=== PATIENT | female | born 1930 | race Caucasian/White ===

== ENCOUNTER 2016-09-04 10:46 | Emergency (ER) | payer MEDICARE ==
--- NOTE | 2016-09-04 13:26 | ED CLINICAL REPORT ---
Clinical Report - Physicians/Mid Levels [facility] [address] [place] [address] 09/04/2016 10:48 Patient: MICHELE VALDEZ Time Seen: 1215May 2016. Arrived- By private vehicle. Historian- patient and family. HISTORY OF PRESENT ILLNESS Chief Complaint: Injury to shoulder. 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 Fell. This was not a raising of the arm dislocation. Occurred at home. Patient is experiencing mild pain. Patient denies injury to the head or neck. ( patient with history of dementia, lives with her family members, complaining of right shoulder pain over the last 2 days. Patient uses a walker, however early uses it, and thus falls frequently. Patient otherwise behaving her normal self to family. Also complaining of pain to the right side of the chest, worsens with any palpation.). REVIEW OF SYSTEMS No tingling or numbness. All systems otherwise negative, except as recorded above. PAST HISTORY The patient's dominant hand is the right. She has had a prior injury to the same area. SOCIAL HISTORY Never smoker. No drug use. ADDITIONAL NOTES The nursing notes have been reviewed. PHYSICAL EXAM Vital Signs: 09/04/2016 11:39 BP: 172/72. HR: 64. RR: 20. O2 saturation: 97%. Temp: 98.3 F. Pain level now: 0/10. Appearance: Alert. No apparent distress. Does not appear to be anxious. Head: Head atraumatic. Eyes: Eyes normal inspection. ENT: Nose normal. Neck: Normal inspection. No decreased ROM in the neck. No carotid bruit. CVS: Normal heart rate and rhythm. Heart sounds normal. Respiratory: No respiratory distress. No respiratory distress. Chest wall injury. (tendernss, no signs of trauma, r/ lateral, mid chest). Abdomen: No visible injury. Bowel sounds normal. Skin: Skin warm. Extremities: Right shoulder: tenderness. No ecchymosis or foreign body. No joint effusion. Right acromion: No tenderness or laceration and acromio-clavicular joint: No tenderness or swelling. Right proximal humerus: No tenderness or swelling. Neuro, Vascular and Tendons: Motor intact. Vascular status intact. Tendon function intact. Neuro: Moderately altered mental status: confused. Eyes open spontaneously. Best verbal response: disoriented. Best motor response: localizes to pain. LABS, X-RAYS, AND EKG Chest X-ray: (no acute abnormalities. IMPRESSION: 1. Increased size of large, gas-filled hiatal hernia. 2. Hyperinflation suggestive of emphysema. Electronically Final signed by:Elsie Gomez MD 09/04/2016 2:03:12 PM). Rt Shoulder X-ray: (no signs of new fx/ dislocation IMPRESSION: 1. No acute fractures or shoulder separation. 2. Mild superior subluxation at the glenohumeral joint suggestive of chronic rotator cuff tear. 3. Soft tissue calcifications, potentially within the axillary recess of the humeral joint, likely dystrophic/degenerative. Electronically Final signed by:Elsie Gomez MD 09/04/2016 2:05:43 PM). PROGRESS AND PROCEDURES Course of Care: Patient in her normal state of being, has frequent falls, almost daily. Patient here with family member, lives with her. Patient fell 2 days previously onto the right shoulder. She has had no LOC. She has been behaving her normal self to family. Patient with no signs of acute fracture. Stable. No recent illness, fevers emesis. To f/u outpatient. . Patient is stable. Symptoms better. Patient/family counseled. Disposition: Discharged. CLINICAL IMPRESSION Contusion to the right chest and right shoulder. Fall. INSTRUCTIONS Apply ice. (No signs of broken bones on xray or signs of broken ribs.). Follow-up: Follow up with your doctor as needed. (Electronically signed by Kendra Brown P.A.-C 09/04/2016 14:19) Addenda for MICHELE VALDEZ VisitID: [id number] Date: 09/04/2016 09/04/2016 14:21 ekg: vent rate 62, pr interval 128, no st changes or elevation , possible left atrial enlargemetn, qt 388, normal sinus rhtyhm (Electronically signed by Knedra Brown P.A.-C - 09/04/2016 14:21)
--- NOTE | 2016-09-04 13:26 | ED CLINICAL REPORT ---
Clinical Report - Physicians/Mid Levels [facility] [address] [place] [address] 09/04/2016 10:48 Patient: MICHELE VALDEZ Time Seen: 1215May 2016. Arrived- By private vehicle. Historian- patient and family. HISTORY OF PRESENT ILLNESS Chief Complaint: Injury to shoulder. 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 This was not a raising of the arm dislocation. Occurred at home. Patient is experiencing mild pain. Patient denies injury to the head or neck. ( patient with history of dementia, lives with her family members, complaining of right shoulder pain over the last 2 days. Patient uses a walker, however early uses it, and thus falls frequently. Patient otherwise behaving her normal self to family. Also complaining of pain to the right side of the chest, worsens with any palpation.). REVIEW OF SYSTEMS No tingling or numbness. All systems otherwise negative, except as recorded above. PAST HISTORY The patient's dominant hand is the right. She has had a prior injury to the same area. SOCIAL HISTORY Never smoker. No drug use. ADDITIONAL NOTES The nursing notes have been reviewed. PHYSICAL EXAM Vital Signs: 09/04/2016 11:39 BP: 172/72. HR: 64. RR: 20. O2 saturation: 97%. Temp: 98.3 F. Pain level now: 0/10. Appearance: Alert. No apparent distress. Does not appear to be anxious. Head: Head atraumatic. Eyes: Eyes normal inspection. ENT: Nose normal. Neck: Normal inspection. No decreased ROM in the neck. No carotid bruit. CVS: Normal heart rate and rhythm. Heart sounds normal. Respiratory: No respiratory distress. No respiratory distress. Chest wall injury. (tendernss, no signs of trauma, r/ lateral, mid chest). Abdomen: No visible injury. Bowel sounds normal. Skin: Skin warm. Extremities: Right shoulder: tenderness. No ecchymosis or foreign body. No joint effusion. Right acromion: No tenderness or laceration and acromio-clavicular joint: No tenderness or swelling. Right proximal humerus: No tenderness or swelling. Neuro, Vascular and Tendons: Motor intact. Vascular status intact. Tendon function intact. Neuro: Moderately altered mental status: confused. Eyes open spontaneously. Best verbal response: disoriented. Best motor response: localizes to pain. LABS, X-RAYS, AND EKG Chest X-ray: (no acute abnormalities. IMPRESSION: 1. Increased size of large, gas-filled hiatal hernia. 2. Hyperinflation suggestive of emphysema. Electronically Final signed by:Elsie Gomez MD 09/04/2016 2:03:12 PM). Rt Shoulder X-ray: (no signs of new fx/ dislocation IMPRESSION: 1. No acute fractures or shoulder separation. 2. Mild superior subluxation at the glenohumeral joint suggestive of chronic rotator cuff tear. 3. Soft tissue calcifications, potentially within the axillary recess of the humeral joint, likely dystrophic/degenerative. Electronically Final signed by:Elsie Gomez MD 09/04/2016 2:05:43 PM). PROGRESS AND PROCEDURES Course of Care: Patient in her normal state of being, has frequent falls, almost daily. Patient here with family member, lives with her. Patient fell 2 days previously onto the right shoulder. She has had no LOC. She has been behaving her normal self to family. Patient with no signs of acute fracture. Stable. No recent illness, fevers emesis. To f/u outpatient. . Patient is stable. Symptoms better. Patient/family counseled. Disposition: Discharged. CLINICAL IMPRESSION Contusion to the right chest and right shoulder. Fall. INSTRUCTIONS Apply ice. (No signs of broken bones on xray or signs of broken ribs.). Follow-up: Follow up with your doctor as needed. (Electronically signed by Kendra Brown P.A.-C 09/04/2016 14:19) Addenda for MICHELE VALDEZ VisitID: [id number] Date: 09/04/2016 09/04/2016 14:21 ekg: vent rate 62, pr interval 128, no st changes or elevation , possible left atrial enlargemetn, qt 388, normal sinus rhtyhm (Electronically signed by Kendra Brown P.A.-C - 09/04/2016 14:21)
--- NOTE | 2016-09-04 13:26 | ED NURSING NOTES ---
Clinical Report - Nurses [facility] [place] [address] [address] [place] [address] 09/04/2016 10:48 Patient: MICHELE VALDEZ TRIAGE Triage time 11:40. Acuity: LEVEL 4. Chief Complaint: FALL (3 days ago she fell from standing and hit her right shoulder. Per family she falls every day.). SEPSIS SCREEN: Sepsis Screen. Negative (no infection suspected/documented). SANJUANITA COMA SCORE: Sanjuanita Coma Scale: 15- eyes open spontaneously (4); best verbal response- oriented x 4 (5); best motor response- obeys commands (6). --11:54 Alec Angeles R.N. 11:39 09/04/16. BP: 172/72 (small adult cuff) taken on the left arm, while sitting. HR: 64. RR: 20. O2 saturation: 97% on room air. Temp: 98.3 F (oral). Pain level now: 0/10. --11:54 Alec Angeles R.N. Weight: 40.8 kg stated. Height/Length: 62 inches Per Patient. BMI: 16.5. --11:48 Alec Angeles R.N. Medications Unknown (takes 3 meds daily and 1 weekly). --11:50 Alec Angeles R.N. Allergies No Known Drug Allergy. --11:49 Alec Angeles R.N. History Arrived by private vehicle. Historian: patient. Accompanied by family. ( Pt has a cane, walker, and a seated walker that she uses sometimes. Pt's grand daughter lives with her.). SOCIAL HX: Never smoker. No alcohol use or drug use. ABUSE ASSESSMENT: No report of abuse. --11:54 Alec Angeles R.N. PROBLEMS: Alzheimer's Disease. Clavicle Fracture. Rib Fracture. Fall. Contusion. Diverticulitis. Gastroesophageal Reflux Disease. Osteoporosis. --11:51 Alec Angeles R.N. ADDITIONAL SURGERIES: Adenoidectomy. Appendectomy. Cataract Surgery. Endoscopy. Hysterectomy. Tonsillectomy. --11:51 Alec Angeles R.N. Assessment GENERAL / NEURO / PSYCH: Alert. Appears in no acute distress. The patient is disoriented to person, place and situation. Patient appears calm and cooperative. ( No obvious trauma to her right shoulder). RESPIRATORY: Respirations not labored. Chest nontender. Breath sounds within normal limits. CVS: Capillary refill less than 2 seconds. GI / : Abdomen soft and nontender. SKIN: Mucous membranes are pink. Skin is warm and dry. --11:54 Alec Angeles R.N. Interventions ID band on patient. To treatment room. --11:54 Alec Angeles R.N. PHYSICAL ASSESSMENT To room via wheelchair. GENERAL / NEURO / PSYCH: Alert. Appears in no acute distress. The patient is disoriented to person, place and situation. HEENT: Pupils equal, round and reactive to light. Head non-tender. EXTREMITIES: Extremities exhibit normal ROM. Neuro-vascular status intact to the extremity. Right shoulder: tenderness. No limitation in ROM. SKIN: Skin intact. Skin is warm and dry. --11:58 Alec Angeles R.N. NURSING PROGRESS NOTES Patient gowned. Reassurance given. Two patient identifiers checked. Call light placed in reach. Bed placed in lowest position. Brakes of bed on. Patient ready for evaluation- chart flagged. --11:58 Alec Angeles R.N. EKG time: (1248). EKG was ordered, performed by a tech and shown to the ED physician. --12:56 Yannick He, NORMAN Tech1. DISPOSITION / DISCHARGE Departure time: 1345. Condition at departure: unchanged and stable. Teaching performed with the family. Patient verbalized understanding. Written instructions provided in Kyrgyz. The patient was discharged by the physician pastrycook's assistant. She was discharged home and accompanied by family. She left the Emergency Department in a wheelchair and via private vehicle. Family member driving. --13:50 Alec Angeles R.N. 13:45 09/04/16. BP: 175/66. HR: 63. RR: 20. O2 saturation: 97% on room air. Temp: 98 F (oral). Pain level now: 0/10. --13:50 Alec Angeles R.N. 12:00 09/04/16. BP: 170/60. HR: 65. RR: 20. O2 saturation: 97% on room air. Pain level now: 0/10. --13:51 Alec Angeles R.N. Locked/Released at 09/04/2016 15:15 by Alec Angeles R.N.
--- NOTE | 2016-09-04 13:26 | ED ORDER SUMMARY ---
..... Patient: MICHELE VALDEZ OrderSheet [facility] VisitID: [id number] [address] [place] [address] 86y, F Registration Date/Time: 09/04/2016 ORDER SHEET Weight: 40.8 kg (stated) Allergies: No Known Drug Allergy GENERAL ORDERS: Chest 2V Urgent (12:11 09/04/2016 EKoroleva P.A.-C) (Ack 12:12 Santos) (13:03 James) Shoulder 2V or more Right Urgent (12:11 09/04/2016 EKoroleva P.A.-C) (Ack 12:12 Santos) (13:03 James) EKG - ER Stat (12:11 09/04/2016 EKoroleva P.A.-C) (12:55 PWeiler ER Tech1) MEDICATION ORDERS: IV FLUIDS: ORDER SHEET NOTES: [Electronically signed by Kendra Brown P.A.-C (14:19 09/04/2016)] [Electronically signed by Alec Angeles R.N. (15:15 09/04/2016)] [Electronically locked/signed by Alec Angeles R.N. (15:15 09/04/2016)]
--- NOTE | 2016-09-04 13:26 | ED NURSING NOTES ---
Clinical Report - Nurses [facility] [place] [address] 09/04/2016 10:48 Patient: MICHELE VALDEZ TRIAGE Triage time 11:40. Acuity: LEVEL 4. Chief Complaint: FALL (3 days ago she fell from standing and hit her right shoulder. Per family she falls every day.). SEPSIS SCREEN: Sepsis Screen. Negative (no infection suspected/documented). SANJUANITA COMA SCORE: Sanjuanita Coma Scale: 15- eyes open spontaneously (4); best verbal response- oriented x 4 (5); best motor response- obeys commands (6). --11:54 Alec Angeles R.N. 11:39 09/04/16. BP: 172/72 (small adult cuff) taken on the left arm, while sitting. HR: 64. RR: 20. O2 saturation: 97% on room air. Temp: 98.3 F (oral). Pain level now: 0/10. --11:54 Alec Angeles R.N. Weight: 40.8 kg stated. Height/Length: 62 inches Per Patient. BMI: 16.5. --11:48 Alec Angeles R.N. Medications Unknown (takes 3 meds daily and 1 weekly). --11:50 Alec Angeles R.N. Allergies No Known Drug Allergy. --11:49 Alec Angeles R.N. History Arrived by private vehicle. Historian: patient. Accompanied by family. ( Pt has a cane, walker, and a seated walker that she uses sometimes. Pt's grand daughter lives with her.). SOCIAL HX: Never smoker. No alcohol use or drug use. ABUSE ASSESSMENT: No report of abuse. --11:54 Alec Angeles R.N. PROBLEMS: Alzheimer's Disease. Clavicle Fracture. Rib Fracture. Fall. Contusion. Diverticulitis. Gastroesophageal Reflux Disease. Osteoporosis. --11:51 Alec Angeles R.N. ADDITIONAL SURGERIES: Adenoidectomy. Appendectomy. Cataract Surgery. Endoscopy. Hysterectomy. Tonsillectomy. --11:51 Alec Angeles R.N. Assessment GENERAL / NEURO / PSYCH: Alert. Appears in no acute distress. The patient is disoriented to person, place and situation. Patient appears calm and cooperative. ( No obvious trauma to her right shoulder). RESPIRATORY: Respirations not labored. Chest nontender. Breath sounds within normal limits. CVS: Capillary refill less than 2 seconds. GI / : Abdomen soft and nontender. SKIN: Mucous membranes are pink. Skin is warm and dry. --11:54 Alec Angeles R.N. Interventions ID band on patient. To treatment room. --11:54 Alec Angeles R.N. PHYSICAL ASSESSMENT To room via wheelchair. GENERAL / NEURO / PSYCH: Alert. Appears in no acute distress. The patient is disoriented to person, place and situation. HEENT: Pupils equal, round and reactive to light. Head non-tender. EXTREMITIES: Extremities exhibit normal ROM. Neuro-vascular status intact to the extremity. Right shoulder: tenderness. No limitation in ROM. SKIN: Skin intact. Skin is warm and dry. --11:58 Alec Angeles R.N. NURSING PROGRESS NOTES Patient gowned. Reassurance given. Two patient identifiers checked. Call light placed in reach. Bed placed in lowest position. Brakes of bed on. Patient ready for evaluation- chart flagged. --11:58 Alec Angeles R.N. EKG time: (1248). EKG was ordered, performed by a tech and shown to the ED physician. --12:56 Yannick He, NORMAN Tech1. DISPOSITION / DISCHARGE Departure time: 1345. Condition at departure: unchanged and stable. Teaching performed with the family. Patient verbalized understanding. Written instructions provided in Kazakh. The patient was discharged by the physician assistant corporate secretary. She was discharged home and accompanied by family. She left the Emergency Department in a wheelchair and via private vehicle. Family member driving. --13:50 Alec Angeles R.N. 13:45 09/04/16. BP: 175/66. HR: 63. RR: 20. O2 saturation: 97% on room air. Temp: 98 F (oral). Pain level now: 0/10. --13:50 Alec Angeles R.N. 12:00 09/04/16. BP: 170/60. HR: 65. RR: 20. O2 saturation: 97% on room air. Pain level now: 0/10. --13:51 Alec Angeles R.N. Locked/Released at 09/04/2016 15:15 by Alec Angeles R.N.
--- NOTE | 2016-09-04 13:26 | ED ORDER SUMMARY ---
..... Patient: MICHELE VALDEZ OrderSheet [facility] VisitID: [id number] [address] [place] [address] 86y, F Registration Date/Time: 09/04/2016 ORDER SHEET Weight: 40.8 kg (stated) Allergies: No Known Drug Allergy GENERAL ORDERS: Chest 2V Urgent (12:11 09/04/2016 EKoroleva P.A.-C) (Ack 12:12 Santos) (13:03 James) Shoulder 2V or more Right Urgent (12:11 09/04/2016 EKoroleva P.A.-C) (Ack 12:12 Santos) (13:03 James) EKG - ER Stat (12:11 09/04/2016 EKoroleva P.A.-C) (12:55 PWeiler ER Tech1) MEDICATION ORDERS: IV FLUIDS: ORDER SHEET NOTES: [Electronically signed by Kendra Brown P.A.-C (14:19 09/04/2016)] [Electronically signed by Alec Angeles R.N. (15:15 09/04/2016)] [Electronically locked/signed by Alec Angeles R.N. (15:15 09/04/2016)]
--- NOTE | 2016-09-04 14:03 | DIAGNOSTIC IMAGING REPORT ---
PROCEDURE: XR CHEST 2 VIEW INDICATION: CHEST PAIN TECHNIQUE: Two views. COMPARISON: 12/22/2015 FINDINGS: Normal sized heart. Large, gas-filled hiatal hernia, increased compared to the prior study. No central vascular congestion. Moderately hyperinflated lungs. No pneumothorax. Demineralized osseous structures. IMPRESSION: 1. Increased size of large, gas-filled hiatal hernia. 2. Hyperinflation suggestive of emphysema.
--- NOTE | 2016-09-04 14:05 | DIAGNOSTIC IMAGING REPORT ---
PROCEDURE: XR SHOULDER 2 OR MORE VW-RIGHT INDICATION: TRAUMA/INJURY TECHNIQUE: Three views of the right shoulder COMPARISON: 01/11/2014 FINDINGS: Demineralized osseous structures. No acute fractures. Mild superior subluxation of the glenohumeral joint. Moderate degenerative changes at the right acromioclavicular joint. Mild degenerative subcortical cystic change in the humeral head. The visible rib arcs are intact. No underlying pneumothorax or contusion. Tiny soft tissue calcifications just medial to the humeral neck may be debris in the glenohumeral joint. IMPRESSION: 1. No acute fractures or shoulder separation. 2. Mild superior subluxation at the glenohumeral joint suggestive of chronic rotator cuff tear. 3. Soft tissue calcifications, potentially within the axillary recess of the humeral joint, likely dystrophic/degenerative.
--- NOTE | 2016-09-04 15:15 | ED MAR SUMMARY ---
..... Medication Administration Record [facility] [address] [place], [place] [id number] Patient: MICHELE VALDEZ Visit ID: [id number] 86y, F Weight: 40.8 kg Height/Length: 62 in BMI: 16.5 ALLERGIES: No Known Drug Allergy
--- NOTE | 2016-09-04 15:15 | ED MAR SUMMARY ---
..... Medication Administration Record [facility] [address] [place], [place] [id number] Patient: MICHELE VALDEZ Visit ID: [id number] 86y, F Weight: 40.8 kg Height/Length: 62 in BMI: 16.5 ALLERGIES: No Known Drug Allergy
--- NOTE | 2016-09-04 15:15 | ED MED RECONCILIATION SUMMARY ---
Patient: JOSÉ MIGUEL, THEADA H Medication Reconciliation Report [facility] VisitID: [id number] [address] [address] 86y, F Registration Date/Time: 09/04/2016 Weight: 40.8 kg Height/Length: 62 in. BMI: 16.5 ALLERGIES: No Known Drug Allergy The patient's Home Medications are listed below: Unknown. The source(s) of the original Home Medication information: Not obtained. The following Medications were given to the patient in the Emergency Department: None. The following Medications were prescribed to the patient: None.
--- NOTE | 2016-09-04 15:15 | ED MED RECONCILIATION SUMMARY ---
Patient: JOSÉ MIGUEL, THEADA H Medication Reconciliation Report [facility] VisitID: [id number] [address] [place] [address] 86y, F Registration Date/Time: 09/04/2016 Weight: 40.8 kg Height/Length: 62 in. BMI: 16.5 ALLERGIES: No Known Drug Allergy The patient's Home Medications are listed below: Unknown. The source(s) of the original Home Medication information: Not obtained. The following Medications were given to the patient in the Emergency Department: None. The following Medications were prescribed to the patient: None.
--- NOTE | 2016-09-04 15:15 | ED DISCHARGE INSTRUCTIONS ---
Patient: MICHELE VALDEZ General Instructions [facility] VisitID: [id number] [address] [place] [address] 86y, F Registration Date/Time: 09/04/2016 Contusion to the right chest and right shoulder. Fall. INSTRUCTIONS Apply ice. (No signs of broken bones on xray or signs of broken ribs.). Follow-up: Follow up with your doctor as needed. ADDITIONAL INFORMATION Mechanical Fall You have had a fall today. It appears that the cause is mechanical. That means that you slipped, tripped or lost your balance. If your fall had been due to fainting or a seizure, further tests would be required. Home Care: Rest today and resume your normal activities when you are feeling back to normal. If you were injured during the fall, follow the advice from your doctor regarding care of your injury. You may use acetaminophen (Tylenol) or ibuprofen (Motrin, Advil) to control pain, unless another pain medicine was prescribed. [NOTE: If you have chronic liver or kidney disease or ever had a stomach ulcer or GI bleeding, talk with your doctor before using these medicines.] Fall Prevention: Was there anything that caused your fall that can be fixed, removed, or replaced? Make your home safe by keeping walkways clear of objects you may trip over. Use non-slip pads under rugs. Do not walk in poorly lit areas. Do not stand on chairs or wobbly ladders. Use caution when reaching overhead or looking upward. This position can cause a loss of balance. Be sure your shoes fit properly, have non-slip bottoms and are in good condition. Be cautious when going up and down curbs, and walking on uneven sidewalks. If your balance is poor, consider using a cane or walker. Stay as active as you can. Balance, flexibility, strength, and endurance all come from exercise. They all play a role in preventing falls. Follow Up with your doctor or as advised by our staff. Get Prompt Medical Attention if any of the following occur: Repeated mechanical falls, or unexplained falls Dizziness, fainting or seizure Severe headache Chest pain or shortness of breath Palpitations (very rapid or very slow or irregular heartbeat) Blood in vomit, stools (black or red color) Weakness of an arm or leg or one side of the face Difficulty with speech or vision Chest Contusion Acontusion is a bruise to the skin, muscle or ribs. It may cause pain, tenderness, swelling and a purplish discoloration. Contusions take a few days to a few weeks to heal. Home Care: Rest. You should not be doing any heavy lifting or strenuous exertion, or any activity that causes pain. You may use acetaminophen (Tylenol) or ibuprofen (Motrin, Advil) to control pain, unless another pain medicine was prescribed. [ NOTE: If you have chronic liver or kidney disease or ever had a stomach ulcer or GI bleeding, talk with your doctor before using these medicines.] Follow Up with your doctor during the next week or as directed. Get Prompt Medical Attention if any of the following occur: Shortness of breath Increasing chest pain with breathing Dizziness, weakness or fainting New or worsening of abdominal pain Fever of 100.4F (38C) or higher, or as directed by your healthcare provider Contusion:Upper Extremity You have a contusion of your upper extremity (arm, wrist, hand or fingers). This causes local pain, swelling and sometimes bruising. There are no broken bones. This injury takes a few days to a few weeks to heal. A sling may be provided for comfort and arm support. Home Care: 1) Keep your arm elevated to reduce pain and swelling. This is very important during the first 48 hours. 2) Apply an ice pack (ice cubes in a plastic bag, wrapped in a towel) over the injured area for 20 minutes every 1-2 hours the first day for pain relief. Continue this 3-4 times a day until the pain and swelling goes away. 3) You may use acetaminophen (Tylenol) or ibuprofen (Motrin, Advil) to control pain, unless another pain medicine was prescribed. [ NOTE : If you have chronic liver or kidney disease or ever had a stomach ulcer or GI bleeding, talk with your doctor before using these medicines.] 4) If a sling was provided, you may remove it to shower or bathe. Do not wear it for more than one week or it may cause joint stiffness. Follow Up with your doctor or this facility if you are not starting to improve within the next THREE days. [NOTE: If X-rays were taken, they will be reviewed by a radiologist. You will be notified of any new findings that may affect your care.] Get Prompt Medical Attention if any of the following occur: -- Pain or swelling increases -- Redness, warmth or drainage -- Hand or fingers becomes cold, blue, numb or tingly You have been given the following additional information: Fall, Mechanical Chest Wall Contusion Contusion, Upper Extremity (Electronically signed by Kendra Brown P.A.-C 09/04/2016 14:19)
== END 2016-09-04 13:45 | disposition home or self-care (01) ==
LOC: ED SRH 10:46
DX: S20.211A Contusion of right front wall of thorax, initial encounter (principal); S40.011A Contusion of right shoulder, initial encounter; W19.XXXA Unspecified fall, initial encounter; Y93.9 Activity, unspecified; Y99.9 Unspecified external cause status; Y92.009 Unspecified place in unspecified non-institutional (private) residence as the place of occurrence of the external cause; F03.90 Unspecified dementia, unspecified severity, without behavioral disturbance, psychotic disturbance, mood disturbance, and anxiety; Z91.81 History of falling

== ENCOUNTER 2016-09-27 17:34 | Emergency (ER) | payer MEDICARE ==
--- NOTE | 2016-09-27 19:54 | ED NURSING NOTES ---
Clinical Report - Nurses [facility] [address] 09/27/2016 17:35 Patient: MICHELE VALDEZ TRIAGE Triage time 18:11 Sep 27 2016. Chief Complaint: INJURY TO LEFT ANKLE. INJURY TO THE LEFT ANKLE. Alert. No acute distress. DILAN COMA SCORE: [place] Coma Scale. --18:18 Betsy Barahona R.N. 18:11 09/27/16. BP: 159/77. HR: 78. RR: 17. O2 saturation: 97%. Temp: 98.8 F. Davison-Call pain scale: 2/10. --18:18 Betsy Barahona R.N. Weight: 43 kg stated. Height/Length: 60 inches Per Patient. BMI: 18.5. --18:17 Betsy Barahona R.N. Medications Unknown (takes 3 meds daily and 1 weekly). --18:14 Betsy Barahona R.N. Medication/allergy information source: the patient's family (eleuterio reports " I give her her medicines but I don't know what they are" asked to copy them and keep them in her purse for further reference). --18:18 Betsy Barahona R.N. Allergies No Known Drug Allergy. --18:14 Betsy Barahona R.N. History Arrived by private vehicle. Historian: patient and family. Accompanied by family. This occurred just prior to arrival. ( pt reports going to a standing position and heard a "pop" pt presents with swelling to left ankle). She has had trouble walking. 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 SOCIAL HX: Never smoker. No alcohol use or drug use. No infectious disease exposure. ABUSE ASSESSMENT: No report of abuse. FALL RISK ASSESSMENT: Fall risk assessment completed. Risk factors identified include patient age greater than 65 years, history of fall and impairment of mobility and cognition. Fall interventions initiated. Patient identified as a fall risk by ID band. Family at bedside. Call light in reach of patient and family. Instructed not to get up without assistance. 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 LEARNING NEEDS ASSESSMENT: A learning needs assessment was performed. Factors affecting the patient's ability to learn include cognitive limitations. --18:18 Betsy Barahona R.N. PROBLEMS: Prior Injury, Same Area. Alzheimer's Disease. Clavicle Fracture. Rib Fracture. Fall. Contusion. Tetanus Status. Immunizations. Diverticulitis. Gastroesophageal Reflux Disease. Osteoporosis. --18:14 Betsy Barahona R.N. Parkinson's Disease [RuleOut]. --18:14 Betsy Barahona R.N. ADDITIONAL SURGERIES: Adenoidectomy. Appendectomy. Cataract Surgery. Endoscopy. Hysterectomy. Tonsillectomy. --18:14 Betsy Barahona R.N. Interventions ID band on patient. To treatment room. --18:18 Betsy Barahona R.N. PHYSICAL ASSESSMENT To room via wheelchair. GENERAL / NEURO / PSYCH: Alert. Appears in no acute distress. The patient is disoriented to time. EXTREMITIES: Pain with weight bearing. Neuro-vascular status intact to the extremity. Left ankle: tenderness and swelling. SKIN: Skin intact. Skin is warm and dry. --18:19 Betsy Barahona R.N. NURSING PROGRESS NOTES Patient identifiers checked. Call light placed in reach. Side rails up x 2. Bed placed in lowest position. Brakes of bed on. Patient ready for evaluation- chart flagged. Patient waiting for evaluation. --18:19 Betsy Barahona R.N. Neuro-vascular extremity check distal to injury: pulses intact. --18:19 Betsy Barahona R.N. 19:45. ( Helped patient with using the bed hanson. Patient had some urine output. Gela care provided afterward. patient tolerated well.). --19:57 Any Chacko 3D boot applied to left foot by tech; distal pulses intact, sensation intact and motor function within normal limits. --19:58 Any Chacko 20:23 09/27/2016 Hydrocodone-APAP (Hydrocodone-Acetaminophen) PO 5/325 mg Tablets 1 tab given. Allergies verified, confirmed 5 rights and sedative warning given to the patient and patient's family. --20:33 Betsy Barahona R.N. DISPOSITION / DISCHARGE Departure time: 2030. No learning barriers present. Discharge instructions provided and reviewed with the patient and family. Reviewed medication(s) side effects, precautions, dosing and course information. Patient verbalized understanding. Written instructions provided in Swiss. The patient was discharged by the nurse practitioner. She was discharged home and accompanied by family. She left the Emergency Department in a wheelchair, via private vehicle and (pt assisted to car in w/c and helped in to vehicle). Family member driving. ( discussed with eleuterio at length importance of assisting pt with transfers. per [facility] she has been in contact with her father and he is attempting to get an electric w/c for home use. per [facility] her b/f will be at home to carry her in to the home.). --20:38 Betsy Barahona R.N. 20:34 09/27/16. BP: 141/78. HR: 68. RR: 17. O2 saturation: 98%. Temp: deferred. Davison-Call pain scale: 2/10. --20:38 Betsy Barahona R.N. Locked/Released at 09/27/2016 20:56 by Betsy Barahona R.N.
--- NOTE | 2016-09-27 19:54 | ED CLINICAL REPORT ---
Clinical Report - Physicians/Mid Levels [facility] [address] [place] [address] 09/27/2016 17:35 Patient: MICHELE VALDEZ Time Seen: 18:15; initial patient contact, initial documentation, patient care assumed. Arrived- By private vehicle. Historian- patient (granddaughter). HISTORY OF PRESENT ILLNESS Chief Complaint: Injury to left ankle. The injury happened just prior to arrival. Occurred at home. ( no actual injury, went to stand up, heard pop, felt pain, then it got swollen). Patient is experiencing severe pain. Patient denies injury to the head or neck. No other injury. REVIEW OF SYSTEMS The patient complains of pain on weight bearing. She has had swelling. No tingling, weakness, numbness, suspected foreign body or skin laceration. All systems otherwise negative, except as recorded above. PAST HISTORY See nurses notes. ( PROBLEMS: Prior Injury, Same Area. Alzheimer's Disease. Clavicle Fracture. Rib Fracture. Fall. Contusion. Tetanus Status. Immunizations. Diverticulitis. Gastroesophageal Reflux Disease. Osteoporosis. --18:14 Betsy Barahona RGeneva. Parkinson's Disease [RuleOut]. --18:14 Betsy Barahona R.N. ADDITIONAL SURGERIES: Adenoidectomy. Appendectomy. Cataract Surgery. Endoscopy. Hysterectomy. Tonsillectomy. --18:14 Betsy Barahona R.N.). SOCIAL HISTORY Never smoker. No alcohol use or drug use. No recent travel. Is a local resident. FAMILY HISTORY No significant family medical history. ADDITIONAL NOTES The nursing notes have been reviewed with agreement regarding the chief complaint, HPI, ROS, PMH and patient medications and allergies. PHYSICAL EXAM Vital Signs: 09/27/2016 18:11 BP: 159/77. HR: 78. RR: 17. O2 saturation: 97%. Temp: 98.8 F. Davison-Call pain scale: 2/10. Have been reviewed as normal and appear to be correct. Head: Head atraumatic. Eyes: Pupils equal, round and reactive to light. Eyes normal inspection. Respiratory: No respiratory distress. Skin: Skin intact. Skin warm and dry. Normal skin color. Normal skin turgor. Extremities: Left ankle: moderate tenderness and swelling and small ecchymosis localized to the lateral malleolus and medial malleolus. Limited ROM secondary to pain (diminished plantar flexion, dorsiflexion, inversion and eversion). Neurovascular intact distally. No ligamentous laxity present. No joint effusion. No erythema, laceration, abrasion, puncture wound or foreign body. No deformity. Lower extremity exam otherwise negative. Extremities otherwise negative. Neuro, Vascular and Tendons: Vascular status intact. Sensation intact. Motor intact. Tendon function intact. Gait: Abnormal gait. Gait not tested due to pain. Neuro: Oriented X 3. No motor deficit. No sensory deficit. Note: isolated issue to ankle. LABS, X-RAYS, AND EKG Lt Ankle X-ray: Oblique fracture of the distal left fibula. No open fracture of the left fibula. (IMPRESSION: 1. Oblique fracture of the distal fibula with minimal displacement into 2. Fracture of the distal tibia anteriorly and posteriorly 3. Medial malleolar nondisplaced fracture versus summation artifact 4. Results discussed with Kelsie Vera Electronically Final signed by:Olvin Hernandez MD 09/27/2016 7:59:45 PM). The X-rays were independently viewed by me, interpreted by the radiologist and discussed with the radiologist. Interpretation time: 19:57. PROGRESS AND PROCEDURES Course of Care: tx options discussed with granddaughter, splint vs boot, crutches, walker, wheelchair, power chair, room in house for power chair, need for f/u, pain meds, she telling me that she had brochure at home that pcp gave her a couple of months ago for power chair, but she didn't follow thru with it, concerns about walking in boot, but decided it was best alternative compared to splint, and she would work on something fpc for her to get around. 09/27/2016 20:34 BP: 141/78. HR: 68. RR: 17. O2 saturation: 98%. Davison-Call pain scale: 2/10. Vital Signs: have been reviewed as normal and appear to be correct. Patient and family counseled in person regarding the patient's stable condition, test results and diagnosis. 1944. Differential Diagnosis: Other possible considerations: ankle fx, sprain, dislocation, contusion. Above considerations are based on history, physical exam, reassessment and X-Ray data. Differential diagnosis was discussed with patient and patient's family. Disposition: Discharged home in good and improved condition (19:54). Condition: good and stable. CLINICAL IMPRESSION Closed nondisplaced transverse fracture of the distal aspect of the left fibula. No angulated fracture of the fibula. INSTRUCTIONS Apply ice for 20 minutes four times a day for two days until better. Don't apply ice directly to skin. Wear boot orthosis until released. Elevate affected areas above chest level for two days until better. Warnings: GENERAL WARNINGS: Return or contact your physician immediately if your condition worsens or changes unexpectedly, if not improving as expected, or if other problems arise. Specifically return if problem worsens. Prescription Medications: Zofran 4 mg: Take 1 orally every six hours as needed for nausea/vomiting. Dispense ten (10). No refills. Substitution is permissible. [place] 5 mg / 325 mg tablets: take 1 to 2 orally every 6 hours as needed for pain. Dispense fifteen (15). No refills. Substitution is permissible. Motrin 800 mg tablets: take 1 tablet orally every 8 hours as needed for pain. Dispense thirty (30). No refills. Substitution is permissible. Understanding of the discharge instructions verbalized by family. [facility] with: [facility], , [address], , [place] [address]; Emmanuel Borden M.D., Ortho, , [address], , [place] [address]; Tex Lira M.D., [facility], , [address], , [place] [address]; Juan Menezes MD, Orthopedic Surgeon, , [address], , [place], [address]; Kenneth Palumbo MD, Orthopedic Surgeon, , [address] , [place], [address] Follow up in about three days even if well. Call for an appointment. Summary of care provided to family. (Electronically signed by Kelsie Vera A.R.N.P. 09/27/2016 22:52)
--- NOTE | 2016-09-27 19:54 | ED NURSING NOTES ---
Clinical Report - Nurses [facility] [place] [address] [address] [place] [address] 09/27/2016 17:35 Patient: MICHELE VALDEZ TRIAGE Triage time 18:11 Sep 27 2016. Chief Complaint: INJURY TO LEFT ANKLE. INJURY TO THE LEFT ANKLE. Alert. No acute distress. DILAN COMA SCORE: [place] Coma Scale. --18:18 Betsy Barahona R.N. 18:11 09/27/16. BP: 159/77. HR: 78. RR: 17. O2 saturation: 97%. Temp: 98.8 F. Davison-Call pain scale: 2/10. --18:18 Betsy Barahona R.N. Weight: 43 kg stated. Height/Length: 60 inches Per Patient. BMI: 18.5. --18:17 Betsy Barahona R.N. Medications Unknown (takes 3 meds daily and 1 weekly). --18:14 Betsy Barahona R.N. Medication/allergy information source: the patient's family (eleuterio reports " I give her her medicines but I don't know what they are" asked to copy them and keep them in her purse for further reference). --18:18 Betsy Barahona R.N. Allergies No Known Drug Allergy. --18:14 Betsy Barahona R.N. History Arrived by private vehicle. Historian: patient and family. Accompanied by family. This occurred just prior to arrival. ( pt reports going to a standing position and heard a "pop" pt presents with swelling to left ankle). She has had trouble walking. 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 SOCIAL HX: Never smoker. No alcohol use or drug use. No infectious disease exposure. ABUSE ASSESSMENT: No report of abuse. FALL RISK ASSESSMENT: Fall risk assessment completed. Risk factors identified include patient age greater than 65 years, history of fall and impairment of mobility and cognition. Fall interventions initiated. Patient identified as a fall risk by ID band. Family at bedside. Call light in reach of patient and family. Instructed not to get up without assistance. 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 LEARNING NEEDS ASSESSMENT: A learning needs assessment was performed. Factors affecting the patient's ability to learn include cognitive limitations. --18:18 Betsy Barahona R.N. PROBLEMS: Prior Injury, Same Area. Alzheimer's Disease. Clavicle Fracture. Rib Fracture. Fall. Contusion. Tetanus Status. Immunizations. Diverticulitis. Gastroesophageal Reflux Disease. Osteoporosis. --18:14 Betsy Barahona R.N. Parkinson's Disease [RuleOut]. --18:14 Betsy Barahona R.N. ADDITIONAL SURGERIES: Adenoidectomy. Appendectomy. Cataract Surgery. Endoscopy. Hysterectomy. Tonsillectomy. --18:14 Betsy Barahona R.N. Interventions ID band on patient. To treatment room. --18:18 Betsy Barahona R.N. PHYSICAL ASSESSMENT To room via wheelchair. GENERAL / NEURO / PSYCH: Alert. Appears in no acute distress. The patient is disoriented to time. EXTREMITIES: Pain with weight bearing. Neuro-vascular status intact to the extremity. Left ankle: tenderness and swelling. SKIN: Skin intact. Skin is warm and dry. --18:19 Betsy Barahona R.N. NURSING PROGRESS NOTES Patient identifiers checked. Call light placed in reach. Side rails up x 2. Bed placed in lowest position. Brakes of bed on. Patient ready for evaluation- chart flagged. Patient waiting for evaluation. --18:19 Betsy Barahona R.N. Neuro-vascular extremity check distal to injury: pulses intact. --18:19 Betsy Barahona R.N. 19:45. ( Helped patient with using the bed hanson. Patient had some urine output. Gela care provided afterward. patient tolerated well.). --19:57 Any Chacko 3D boot applied to left foot by tech; distal pulses intact, sensation intact and motor function within normal limits. --19:58 Any Chacko 20:23 09/27/2016 Hydrocodone-APAP (Hydrocodone-Acetaminophen) PO 5/325 mg Tablets 1 tab given. Allergies verified, confirmed 5 rights and sedative warning given to the patient and patient's family. --20:33 Betsy Barahona R.N. DISPOSITION / DISCHARGE Departure time: 2030. No learning barriers present. Discharge instructions provided and reviewed with the patient and family. Reviewed medication(s) side effects, precautions, dosing and course information. Patient verbalized understanding. Written instructions provided in [place]. The patient was discharged by the nurse practitioner. She was discharged home and accompanied by family. She left the Emergency Department in a wheelchair, via private vehicle and (pt assisted to car in w/c and helped in to vehicle). Family member driving. ( discussed with eleuterio at length importance of assisting pt with transfers. per [facility] she has been in contact with her father and he is attempting to get an electric w/c for home use. per [facility] her b/f will be at home to carry her in to the home.). --20:38 Betsy Barahona R.N. 20:34 09/27/16. BP: 141/78. HR: 68. RR: 17. O2 saturation: 98%. Temp: deferred. Davison-Call pain scale: 2/10. --20:38 Betsy Barahona R.N. Locked/Released at 09/27/2016 20:56 by Betsy Barahona R.N.
--- NOTE | 2016-09-27 19:54 | ED CLINICAL REPORT ---
Clinical Report - Physicians/Mid Levels [facility] [address] [place] [address] 09/27/2016 17:35 Patient: MICHELE VALDEZ Time Seen: 18:15; initial patient contact, initial documentation, patient care assumed. Arrived- By private vehicle. Historian- patient (granddaughter). HISTORY OF PRESENT ILLNESS Chief Complaint: Injury to left ankle. The injury happened just prior to arrival. Occurred at home. ( no actual injury, went to stand up, heard pop, felt pain, then it got swollen). Patient is experiencing severe pain. Patient denies injury to the head or neck. No other injury. REVIEW OF SYSTEMS The patient complains of pain on weight bearing. She has had swelling. No tingling, weakness, numbness, suspected foreign body or skin laceration. All systems otherwise negative, except as recorded above. PAST HISTORY See nurses notes. ( PROBLEMS: Prior Injury, Same Area. Alzheimer's Disease. Clavicle Fracture. Rib Fracture. Fall. Contusion. Tetanus Status. Immunizations. Diverticulitis. Gastroesophageal Reflux Disease. Osteoporosis. --18:14 Betsy Barahona RGeneva. Parkinson's Disease [RuleOut]. --18:14 Betsy Barahona R.N. ADDITIONAL SURGERIES: Adenoidectomy. Appendectomy. Cataract Surgery. Endoscopy. Hysterectomy. Tonsillectomy. --18:14 Betsy Barahona R.N.). SOCIAL HISTORY Never smoker. No alcohol use or drug use. No recent travel. Is a local resident. FAMILY HISTORY No significant family medical history. ADDITIONAL NOTES The nursing notes have been reviewed with agreement regarding the chief complaint, HPI, ROS, PMH and patient medications and allergies. PHYSICAL EXAM Vital Signs: 09/27/2016 18:11 BP: 159/77. HR: 78. RR: 17. O2 saturation: 97%. Temp: 98.8 F. Davison-Call pain scale: 2/10. Have been reviewed as normal and appear to be correct. Head: Head atraumatic. Eyes: Pupils equal, round and reactive to light. Eyes normal inspection. Respiratory: No respiratory distress. Skin: Skin intact. Skin warm and dry. Normal skin color. Normal skin turgor. Extremities: Left ankle: moderate tenderness and swelling and small ecchymosis localized to the lateral malleolus and medial malleolus. Limited ROM secondary to pain (diminished plantar flexion, dorsiflexion, inversion and eversion). Neurovascular intact distally. No ligamentous laxity present. No joint effusion. No erythema, laceration, abrasion, puncture wound or foreign body. No deformity. Lower extremity exam otherwise negative. Extremities otherwise negative. Neuro, Vascular and Tendons: Vascular status intact. Sensation intact. Motor intact. Tendon function intact. Gait: Abnormal gait. Gait not tested due to pain. Neuro: Oriented X 3. No motor deficit. No sensory deficit. Note: isolated issue to ankle. LABS, X-RAYS, AND EKG Lt Ankle X-ray: Oblique fracture of the distal left fibula. No open fracture of the left fibula. (IMPRESSION: 1. Oblique fracture of the distal fibula with minimal displacement into 2. Fracture of the distal tibia anteriorly and posteriorly 3. Medial malleolar nondisplaced fracture versus summation artifact 4. Results discussed with Kelsie Vera Electronically Final signed by:Olvin Hernandez MD 09/27/2016 7:59:45 PM). The X-rays were independently viewed by me, interpreted by the radiologist and discussed with the radiologist. Interpretation time: 19:57. PROGRESS AND PROCEDURES Course of Care: tx options discussed with granddaughter, splint vs boot, crutches, walker, wheelchair, power chair, room in house for power chair, need for f/u, pain meds, she telling me that she had brochure at home that pcp gave her a couple of months ago for power chair, but she didn't follow thru with it, concerns about walking in boot, but decided it was best alternative compared to splint, and she would work on something [facility] for her to get around. 09/27/2016 20:34 BP: 141/78. HR: 68. RR: 17. O2 saturation: 98%. Davison-Call pain scale: 2/10. Vital Signs: have been reviewed as normal and appear to be correct. Patient and family counseled in person regarding the patient's stable condition, test results and diagnosis. 1942. Differential Diagnosis: Other possible considerations: ankle fx, sprain, dislocation, contusion. Above considerations are based on history, physical exam, reassessment and X-Ray data. Differential diagnosis was discussed with patient and patient's family. Disposition: Discharged home in good and improved condition (19:54). Condition: good and stable. CLINICAL IMPRESSION Closed nondisplaced transverse fracture of the distal aspect of the left fibula. No angulated fracture of the fibula. INSTRUCTIONS Apply ice for 20 minutes four times a day for two days until better. Don't apply ice directly to skin. Wear boot orthosis until released. Elevate affected areas above chest level for two days until better. Warnings: GENERAL WARNINGS: Return or contact your physician immediately if your condition worsens or changes unexpectedly, if not improving as expected, or if other problems arise. Specifically return if problem worsens. Prescription Medications: Zofran 4 mg: Take 1 orally every six hours as needed for nausea/vomiting. Dispense ten (10). No refills. Substitution is permissible. [place] 5 mg / 325 mg tablets: take 1 to 2 orally every 6 hours as needed for pain. Dispense fifteen (15). No refills. Substitution is permissible. Motrin 800 mg tablets: take 1 tablet orally every 8 hours as needed for pain. Dispense thirty (30). No refills. Substitution is permissible. Understanding of the discharge instructions verbalized by family. Follow-up with: [facility], , [address], , [place] [address]; Emmanuel Borden M.D., Ortho, , [address], , [place] [address]; Tex Lira M.D., [facility], , [address], , [place] [address]; Juan Menezes MD, Orthopedic Surgeon, , [address], , [place], [address]; Kenneth Palumbo MD, Orthopedic Surgeon, , [address] , [place], [address] Follow up in about three days even if well. Call for an appointment. Summary of care provided to family. (Electronically signed by Kelsie Vera A.R.N.P. 09/27/2016 22:52)
--- NOTE | 2016-09-27 19:54 | ED ORDER SUMMARY ---
..... Patient: MICHELE VALDEZ OrderSheet [facility] VisitID: [id number] [place] [address] 86y, F Registration Date/Time: 09/27/2016 ORDER SHEET Weight: 43.0 kg (stated) Allergies: No Known Drug Allergy GENERAL ORDERS: Ankle 3 or 4V Left Urgent (19:00 09/27/2016 HBivens A.R.N.P.) (Ack 19:01 PWeiler ER Tech1) (19:39 MCabell) Orthopedic Boot (19:53 09/27/2016 HBivens A.R.N.P.) (20:16 Elena R.N.) MEDICATION ORDERS: Hydrocodone-APAP PO 5/325 mg (NOW, HIGH ALERT MEDICATION) (19:54 09/27/2016 HBivens A.R.N.P.) (Ack 19:57 Ronald R.N.) (20:33 Ronald R.N.) IV FLUIDS: ORDER SHEET NOTES: [Electronically signed by Betsy Barahona R.N. (20:56 09/27/2016)] [Electronically signed by Kelsie VeraR.N.P. (22:52 09/27/2016)] [Electronically locked/signed by Betsy Barahona R.N. (20:56 09/27/2016)]
--- NOTE | 2016-09-27 19:54 | ED ORDER SUMMARY ---
..... Patient: MICHELE VALDEZ OrderSheet [facility] VisitID: [id number] [place] [address] 86y, F Registration Date/Time: 09/27/2016 ORDER SHEET Weight: 43.0 kg (stated) Allergies: No Known Drug Allergy GENERAL ORDERS: Ankle 3 or 4V Left Urgent (19:00 09/27/2016 HBivens A.R.N.P.) (Ack 19:01 PWeiler ER Tech1) (19:39 MCabell) Orthopedic Boot (19:53 09/27/2016 HBivens A.R.N.P.) (20:16 Elena R.N.) MEDICATION ORDERS: Hydrocodone-APAP PO 5/325 mg (NOW, HIGH ALERT MEDICATION) (19:54 09/27/2016 HBivens A.R.N.P.) (Ack 19:57 Ronald R.N.) (20:33 Ronald R.N.) IV FLUIDS: ORDER SHEET NOTES: [Electronically signed by Betsy Barahona R.N. (20:56 09/27/2016)] [Electronically signed by Kelsie VeraR.N.P. (22:52 09/27/2016)] [Electronically locked/signed by Betsy Barahona R.N. (20:56 09/27/2016)]
--- NOTE | 2016-09-27 20:00 | DIAGNOSTIC IMAGING REPORT ---
PROCEDURE: XR ANKLE 3 OR 4 VIEWS - LEFT INDICATION: TRAUMA/INJURY TECHNIQUE: Four views. COMPARISON: None. FINDINGS: Oblique fracture of the distal fibula with minimal displacement. There are a couple of radiolucencies through the medial malleolus, nondisplaced fracture versus summation artifact. There is also a small avulsion fracture of the distal tibia anteriorly as well as calcification paralleling the posterior distal tibia suggestive of an additional fracture. Moderate soft tissue swelling medially. IMPRESSION: 1. Oblique fracture of the distal fibula with minimal displacement into 2. Fracture of the distal tibia anteriorly and posteriorly 3. Medial malleolar nondisplaced fracture versus summation artifact 4. Results discussed with Kelsie Vera
--- NOTE | 2016-09-27 22:53 | ED MAR SUMMARY ---
..... Medication Administration Record [facility] [address] [place] [address] Patient: MICHELE VALDEZ Visit ID: [id number] 86y, F Weight: 43.0 kg Height/Length: 60 in BMI: 18.5 ALLERGIES: No Known Drug Allergy Given 20:23 09/27/2016 Betsy Barahona R.N. Medication Administered: HYDROCODONE-APAP [PO] (HYDROCODONE-ACETAMINOPHEN), Dose: 1 tab 5/325 mg Tablets PO. Medication Ordered: Hydrocodone-APAP PO 5/325 mg (NOW, HIGH ALERT MEDICATION).
--- NOTE | 2016-09-27 22:53 | ED DISCHARGE INSTRUCTIONS ---
Patient: MICHELE VALDEZ General Instructions [facility] VisitID: [id number] [address], [place], [place] [id number] 86y, F Registration Date/Time: 09/27/2016 Closed nondisplaced transverse fracture of the distal aspect of the left fibula. No angulated fracture of the fibula. INSTRUCTIONS Apply ice for 20 minutes four times a day for two days until better. Don't apply ice directly to skin. Wear boot orthosis until released. Elevate affected areas above chest level for two days until better. Warnings: GENERAL WARNINGS: Return or contact your physician immediately if your condition worsens or changes unexpectedly, if not improving as expected, or if other problems arise. Specifically return if problem worsens. Prescription Medications: Zofran 4 mg: Take 1 orally every six hours as needed for nausea/vomiting. Dispense ten (10). No refills. Substitution is permissible. [place] 5 mg / 325 mg tablets: take 1 to 2 orally every 6 hours as needed for pain. Dispense fifteen (15). No refills. Substitution is permissible. Motrin 800 mg tablets: take 1 tablet orally every 8 hours as needed for pain. Dispense thirty (30). No refills. Substitution is permissible. Understanding of the discharge instructions verbalized by family. Follow-up with: [facility], , [address], , [place] [id number]; Emmanuel Borden M.D., Ortho, , [address], [place] [id number]; Tex Lira M.D., Ortho, , [address], , [place] [id number]; Juan Menezes MD, Orthopedic Surgeon, , [address], , [place], [phone]; Kenneth Palumbo MD, Orthopedic Surgeon, , [address] [place] [id number] Follow up in about three days even if well. Call for an appointment. Summary of care provided to family. ADDITIONAL INFORMATION Fracture:Ankle You have a break (fracture) of the ankle. This causes local pain, swelling and sometimes bruising. A fracture is treated with a splint or cast or special boot. It will take about 4-6 weeks for the fracture to heal. Surgery may be needed to fix severe injuries. Home Care: You will be given a splint, cast or boot to prevent movement at the ankle joint. Unless you were told otherwise, use crutches or a walker and do not bear weight on the injured leg until cleared by your doctor to do so. (Crutches and walkers can be rented at many pharmacies and surgical/orthopedic supply stores). Do not put weight on a splint; it will break. Keep your leg elevated to reduce pain and swelling. When sleeping, place a pillow under the injured leg. When sitting, support the injured leg so it is level with your waist. This is very important during the first 48 hours. Apply an ice pack (ice cubes in a plastic bag, wrapped in a towel) over the injured area for 20 minutes every 1-2 hours the first day. You can place the ice pack directly over the splint/cast. Continue with ice packs 3-4 times a day for the next two days, then as needed for the relief of pain and swelling. Keep the cast/splint/boot completely dry at all times. Bathe with your cast/splint/boot out of the water, protected with a large plastic bag, rubber-banded at the top end. If a boot or fiberglass cast/splint gets wet, you can dry it with a hair-dryer. You may use acetaminophen (Tylenol) or ibuprofen (Motrin, Advil) to control pain, unless another pain medicine was prescribed. [ NOTE : If you have chronic liver or kidney disease or ever had a stomach ulcer or GI bleeding, talk with your doctor before using these medicines.] Follow Up with your doctor in one week, or as advised by our staff, to be sure the bone is healing properly. If you were given a splint, it may be changed to a cast at your follow-up visit. [NOTE: A radiologist will review any X-rays that were taken. We will notify you of any new findings that may affect your care.] Get Prompt Medical Attention If Any Of The Following Occur: The plaster cast or splint becomes wet or soft The fiberglass cast or splint remains wet for more than 24 hours Increased tightness or pain under the cast or splint Toes become swollen, cold, blue, numb or tingly Fracture,Ankle, Distal Fibula You have a fracture (broken bone) of the end of the fibula bone. This is one of two bones that support the ankle joint. Home Care: You will be given a splint, cast or special boot to prevent movement at the site of injury. Do not put weight on a splint; it will break. Follow your doctor's advice regarding when to begin bearing weight on a cast or boot. Keep your leg elevated when sitting or lying down. When sleeping, place a pillow under the injured leg. When sitting, support the injured leg so it is level with your waist. This is very important during the first 48 hours. Keep the cast/splint completely dry at all times. When bathing, protect the cast/splint with a large plastic bag, rubber-banded at the top end. If a fiberglass cast or splint gets wet, you can dry it with a hair-dryer. Place an ice pack (ice cubes in a plastic bag, wrapped in a towel) on the splint/cast over the injured area for 20 minutes every 2 hours during the first day.You can place the ice pack directly over the splint/cast. Continue this 3-4 times a day for the next two days. You may use acetaminophen (Tylenol) or ibuprofen (Motrin, Advil) to control pain, unless another pain medicine was prescribed. [NOTE: If you have chronic liver or kidney disease or ever had a stomach ulcer or GI bleeding, talk with your doctor before using these medicines.] Follow Up with your doctor in one week, or as advised by our staff, to be sure the bone is healing properly. If you were given a splint, it may be changed to a cast after the swelling goes down. [NOTE: A radiologist will review any X-rays that were taken. We will notify you of any new findings that may affect your care.] Get Prompt Medical Attention if any of the following occur: The plaster cast or splint becomes wet or soft The fiberglass cast or splint remains wet for more than 24 hours Increased tightness or pain under the cast or splint Toes become swollen, cold, blue, numb or tingly Air[employer] Sp-Walker Boot Traditional splints and casts for the foot and ankle protect the injury by preventing movement at the joints. However, many injuries heal better and faster if the injured joint can be moved, while protected at the same time. This is the reason for using an [employer] Walker boot. This is a short boot that provides support and protection to the foot and ankle while allowing you to walk. It contains padded air cells that provide compression and help circulation. It is used for both foot and ankle injuries - both sprains and minor fractures. Ankle and foot sprains can take 4-6 weeks to heal. Persons with severe injuries or over age 60 may require more time to heal. During that time, you are prone to re-injury by suddenly twisting your foot or ankle again while the ligaments are still weak. When treating a sprain, the eCullet Walker boot should be worn whenever walking for at least four weeks, or as long as you continue to have ankle pain. Talk to your doctor for specific advice about the treatment of your condition. Air-Stirrup and SP-Walker are trademarks of [employer]. For more information about their products, see www.Nu[employer]. Ondansetron Oral disintegrating tablet What is this medicine? ONDANSETRON (on JACQUELINE se antonio) is used to treat nausea and vomiting caused by chemotherapy. It is also used to prevent or treat nausea and vomiting after surgery. How should I use this medicine? These tablets are made to dissolve in the mouth. Do not try to push the tablet through the foil backing. With dry hands, peel away the foil backing and gently remove the tablet. Place the tablet in the mouth and allow it to dissolve, then swallow. While you may take these tablets with water, it is not necessary to do so. Talk to your animal control licensing worker regarding the use of this medicine in children. Special care may be needed. What side effects may I notice from receiving this medicine? Side effects that you should report to your doctor or health resident care aide as soon as possible: allergic reactions like skin rash, itching or hives, swelling of the face, lips, or tongue breathing problems dizziness fast or irregular heartbeat feeling faint or lightheaded, falls fever and chills swelling of the hands and feet tightness in the chest Side effects that usually do not require medical attention (report to your doctor or health resident care aide if they continue or are bothersome): constipation or diarrhea headache What may interact with this medicine? Do not take this medicine with any of the following medications: -apomorphine -cisapride -dofetilide -dronedarone -pimozide -thioridazine -ziprasidone This medicine may also interact with the following medications: -carbamazepine -phenytoin -rifampicin -tramadol -other medicines that prolong the QT interval (cause an abnormal heart rhythm) What if I miss a dose? If you miss a dose, take it as soon as you can. If it is almost time for your next dose, take only that dose. Do not take double or extra doses. Where should I keep my medicine? Keep out of the reach of children. Store between 2 and 30 degrees C (36 and 86 degrees F). Throw away any unused medicine after the expiration date. What should I tell my health care provider before I take this medicine? They need to know if you have any of these conditions: heart disease history of irregular heartbeat liver disease low levels of magnesium or potassium in the blood an unusual or allergic reaction to ondansetron, granisetron, other medicines, foods, dyes, or preservatives or trying to get breast-feeding What should I watch for while using this medicine? Check with your doctor or health resident care aide as soon as you can if you have any sign of an allergic reaction. Hydrocodone Bitartrate, Acetaminophen Oral tablet What is this medicine? ACETAMINOPHEN; HYDROCODONE (a set a ELICEO wanda fen; juan jose droe KOE done) is a pain reliever. It is used to treat mild to moderate pain. How should I use this medicine? Take this medicine by mouth. Swallow it with a full glass of water. Follow the directions on the prescription label. If the medicine upsets your stomach, take the medicine with food or milk. Do not take more than you are told to take. Talk to your animal control licensing worker regarding the use of this medicine in children. This medicine is not approved for use in children. What side effects may I notice from receiving this medicine? Side effects that you should report to your doctor or health resident care aide as soon as possible: allergic reactions like skin rash, itching or hives, swelling of the face, lips, or tongue breathing problems confusion feeling faint or lightheaded, falls stomach pain yellowing of the eyes or skin Side effects that usually do not require medical attention (report to your doctor or health resident care aide if they continue or are bothersome): nausea, vomiting stomach upset What may interact with this medicine? alcohol antihistamines isoniazid medicines for depression, anxiety, or psychotic disturbances medicines for sleep muscle relaxants naltrexone narcotic medicines (opiates) for pain phenobarbital ritonavir tramadol What if I miss a dose? If you miss a dose, take it as soon as you can. If it is almost time for your next dose, take only that dose. Do not take double or extra doses. Where should I keep my medicine? Keep out of the reach of children. This medicine can be abused. Keep your medicine in a safe place to protect it from theft. Do not share this medicine with anyone. Selling or giving away this medicine is dangerous and against the law. Store at room temperature between 15 and 30 degrees C (59 and 86 degrees F). Protect from light. Keep container tightly closed. Throw away any unused medicine after the expiration date. Discard unused medicine and used packaging carefully. Pets and children can be harmed if they find used or lost packages. What should I tell my health care provider before I take this medicine? They need to know if you have any of these conditions: brain tumor Crohn's disease, inflammatory bowel disease, or ulcerative colitis drink more than 3 alcohol-containing drinks per day drug abuse or addiction head injury heart or circulation problems kidney disease or problems going to the bathroom liver disease lung disease, asthma, or breathing problems an unusual or allergic reaction to acetaminophen, hydrocodone, other opioid analgesics, other medicines, foods, dyes, or preservatives or trying to get breast-feeding What should I watch for while using this medicine? Tell your doctor or health resident care aide if your pain does not go away, if it gets worse, or if you have new or a different type of pain. You may develop tolerance to the medicine. Tolerance means that you will need a higher dose of the medicine for pain relief. Tolerance is normal and is expected if you take the medicine for a long time. Do not suddenly stop taking your medicine because you may develop a severe reaction. Your body becomes used to the medicine. This does NOT mean you are addicted. Addiction is a behavior related to getting and using a drug for a non-medical reason. If you have pain, you have a medical reason to take pain medicine. Your doctor will tell you how much medicine to take. If your doctor wants you to stop the medicine, the dose will be slowly lowered over time to avoid any side effects. You may get drowsy or dizzy when you first start taking the medicine or change doses. Do not drive, use machinery, or do anything that may be dangerous until you know how the medicine affects you. Stand or sit up slowly. There are different types of narcotic medicines (opiates) for pain. If you take more than one type at the same time, you may have more side effects. Give your health care provider a list of all medicines you use. Your doctor will tell you how much medicine to take. Do not take more medicine than directed. Call emergency for help if you have problems breathing. The medicine will cause constipation. Try to have a bowel movement at least every 2 to 3 days. If you do not have a bowel movement for 3 days, call your doctor or health resident care aide. Too much acetaminophen can be very dangerous. Do not take Tylenol (acetaminophen) or medicines that contain acetaminophen with this medicine. Many non-prescription medicines contain acetaminophen. Always read the labels carefully. Ibuprofen Oral tablet What is this medicine? IBUPROFEN (eye BYOO proe fen) is a non-steroidal anti-inflammatory drug (NSAID). It is used for dental pain, fever, headaches or migraines, osteoarthritis, rheumatoid arthritis, or painful monthly periods. It can also relieve minor aches and pains caused by a cold, flu, or sore throat. How should I use this medicine? Take this medicine by mouth with a glass of water. Follow the directions on the prescription label. Take this medicine with food if your stomach gets upset. Try to not lie down for at least 10 minutes after you take the medicine. Take your medicine at regular intervals. Do not take your medicine more often than directed. A special MedGuide will be given to you by the pharmacist with each prescription and refill. Be sure to read this information carefully each time. Talk to your animal control licensing worker regarding the use of this medicine in children. Special care may be needed. What side effects may I notice from receiving this medicine? Side effects that you should report to your doctor or health resident care aide as soon as possible: allergic reactions like skin rash, itching or hives, swelling of the face, lips, or tongue black or bloody stools, blood in the urine or in vomit breathing problems changes in vision chest pain general ill feeling or flu-like symptoms nausea or vomiting redness, blistering, peeling or loosening of the skin, including inside the mouth slurred speech or weakness on one side of the body stomach pain unexplained weight gain or swelling unusually weak or tired yellowing of eyes or skin Side effects that usually do not require medical attention (report to your doctor or health resident care aide if they continue or are bothersome): constipation or diarrhea dizziness gas or heartburn stomach upset What may interact with this medicine? Do not take this medicine with any of the following medications: cidofovir ketorolac methotrexate pemetrexed This medicine may also interact with the following medications: alcohol aspirin diuretics lithium other drugs for inflammation like prednisone warfarin What if I miss a dose? If you miss a dose, take it as soon as you can. If it is almost time for your next dose, take only that dose. Do not take double or extra doses. Where should I keep my medicine? Keep out of the reach of children. Store at room temperature between 15 and 30 degrees C (59 and 86 degrees F). Keep container tightly closed. Throw away any unused medicine after the expiration date. What should I tell my health care provider before I take this medicine? They need to know if you have any of these conditions: asthma cigarette smoker drink more than 3 alcohol containing drinks a day heart disease or circulation problems such as heart failure or leg edema (fluid retention) high blood pressure kidney disease liver disease stomach bleeding or ulcers an unusual or allergic reaction to ibuprofen, aspirin, other NSAIDS, other medicines, foods, dyes, or preservatives or trying to get breast-feeding What should I watch for while using this medicine? Tell your doctor or healthcare professional if your symptoms do not start to get better or if they get worse. This medicine does not prevent heart attack or stroke. In fact, this medicine may increase the chance of a heart attack or stroke. The chance may increase with longer use of this medicine and in people who have heart disease. If you take aspirin to prevent heart attack or stroke, talk with your doctor or health resident care aide. Do not take other medicines that contain aspirin, ibuprofen, or naproxen with this medicine. Side effects such as stomach upset, nausea, or ulcers may be more likely to occur. Many medicines available without a prescription should not be taken with this medicine. This medicine can cause ulcers and bleeding in the stomach and intestines at any time during treatment. Ulcers and bleeding can happen without warning symptoms and can cause . To reduce your risk, do not smoke cigarettes or drink alcohol while you are taking this medicine. You may get drowsy or dizzy. Do not drive, use machinery, or do anything that needs mental alertness until you know how this medicine affects you. Do not stand or sit up quickly, especially if you are an older patient. This reduces the risk of dizzy or fainting spells. This medicine can cause you to bleed more easily. Try to avoid damage to your teeth and gums when you brush or floss your teeth. You have been given the following additional information: Fracture, Ankle (General) Ankle Fracture (Distal Fibula), Closed Walker Boot Ondansetron Oral disintegrating tablet Hydrocodone Bitartrate, Acetaminophen Oral tablet Ibuprofen Oral tablet (Electronically signed by Kelsie Vera A.R.N.PKiera 09/27/2016 22:52)
--- NOTE | 2016-09-27 22:53 | ED DISCHARGE INSTRUCTIONS ---
Patient: MICHELE VALDEZ General Instructions [facility] VisitID: [id number] [address], [place], [place] [id number] 86y, F Registration Date/Time: 09/27/2016 Closed nondisplaced transverse fracture of the distal aspect of the left fibula. No angulated fracture of the fibula. INSTRUCTIONS Apply ice for 20 minutes four times a day for two days until better. Don't apply ice directly to skin. Wear boot orthosis until released. Elevate affected areas above chest level for two days until better. Warnings: GENERAL WARNINGS: Return or contact your physician immediately if your condition worsens or changes unexpectedly, if not improving as expected, or if other problems arise. Specifically return if problem worsens. Prescription Medications: Zofran 4 mg: Take 1 orally every six hours as needed for nausea/vomiting. Dispense ten (10). No refills. Substitution is permissible. [place] 5 mg / 325 mg tablets: take 1 to 2 orally every 6 hours as needed for pain. Dispense fifteen (15). No refills. Substitution is permissible. Motrin 800 mg tablets: take 1 tablet orally every 8 hours as needed for pain. Dispense thirty (30). No refills. Substitution is permissible. Understanding of the discharge instructions verbalized by family. Follow-up with: [facility], [facility], , [address], , [place] [id number]; Emmanuel Borden M.D., Ortho, , [address], [place] [phone]; Tex Lira M.D., Ortho, , [address] , [place] [id number]; Juan Menezes MD, Orthopedic Surgeon, , [id number], , [place], [id number]; Kenneth Palumbo MD, Orthopedic Surgeon, , [address] [place] [phone] Follow up in about three days even if well. Call for an appointment. Summary of care provided to family. ADDITIONAL INFORMATION Fracture:Ankle You have a break (fracture) of the ankle. This causes local pain, swelling and sometimes bruising. A fracture is treated with a splint or cast or special boot. It will take about 4-6 weeks for the fracture to heal. Surgery may be needed to fix severe injuries. Home Care: You will be given a splint, cast or boot to prevent movement at the ankle joint. Unless you were told otherwise, use crutches or a walker and do not bear weight on the injured leg until cleared by your doctor to do so. (Crutches and walkers can be rented at many pharmacies and surgical/orthopedic supply stores). Do not put weight on a splint; it will break. Keep your leg elevated to reduce pain and swelling. When sleeping, place a pillow under the injured leg. When sitting, support the injured leg so it is level with your waist. This is very important during the first 48 hours. Apply an ice pack (ice cubes in a plastic bag, wrapped in a towel) over the injured area for 20 minutes every 1-2 hours the first day. You can place the ice pack directly over the splint/cast. Continue with ice packs 3-4 times a day for the next two days, then as needed for the relief of pain and swelling. Keep the cast/splint/boot completely dry at all times. Bathe with your cast/splint/boot out of the water, protected with a large plastic bag, rubber-banded at the top end. If a boot or fiberglass cast/splint gets wet, you can dry it with a hair-dryer. You may use acetaminophen (Tylenol) or ibuprofen (Motrin, Advil) to control pain, unless another pain medicine was prescribed. [ NOTE : If you have chronic liver or kidney disease or ever had a stomach ulcer or GI bleeding, talk with your doctor before using these medicines.] Follow Up with your doctor in one week, or as advised by our staff, to be sure the bone is healing properly. If you were given a splint, it may be changed to a cast at your follow-up visit. [NOTE: A radiologist will review any X-rays that were taken. We will notify you of any new findings that may affect your care.] Get Prompt Medical Attention If Any Of The Following Occur: The plaster cast or splint becomes wet or soft The fiberglass cast or splint remains wet for more than 24 hours Increased tightness or pain under the cast or splint Toes become swollen, cold, blue, numb or tingly Fracture,Ankle, Distal Fibula You have a fracture (broken bone) of the end of the fibula bone. This is one of two bones that support the ankle joint. Home Care: You will be given a splint, cast or special boot to prevent movement at the site of injury. Do not put weight on a splint; it will break. Follow your doctor's advice regarding when to begin bearing weight on a cast or boot. Keep your leg elevated when sitting or lying down. When sleeping, place a pillow under the injured leg. When sitting, support the injured leg so it is level with your waist. This is very important during the first 48 hours. Keep the cast/splint completely dry at all times. When bathing, protect the cast/splint with a large plastic bag, rubber-banded at the top end. If a fiberglass cast or splint gets wet, you can dry it with a hair-dryer. Place an ice pack (ice cubes in a plastic bag, wrapped in a towel) on the splint/cast over the injured area for 20 minutes every 2 hours during the first day.You can place the ice pack directly over the splint/cast. Continue this 3-4 times a day for the next two days. You may use acetaminophen (Tylenol) or ibuprofen (Motrin, Advil) to control pain, unless another pain medicine was prescribed. [NOTE: If you have chronic liver or kidney disease or ever had a stomach ulcer or GI bleeding, talk with your doctor before using these medicines.] Follow Up with your doctor in one week, or as advised by our staff, to be sure the bone is healing properly. If you were given a splint, it may be changed to a cast after the swelling goes down. [NOTE: A radiologist will review any X-rays that were taken. We will notify you of any new findings that may affect your care.] Get Prompt Medical Attention if any of the following occur: The plaster cast or splint becomes wet or soft The fiberglass cast or splint remains wet for more than 24 hours Increased tightness or pain under the cast or splint Toes become swollen, cold, blue, numb or tingly [employer] Sp-Walker Boot Traditional splints and casts for the foot and ankle protect the injury by preventing movement at the joints. However, many injuries heal better and faster if the injured joint can be moved, while protected at the same time. This is the reason for using an [employer] Walker boot. This is a short boot that provides support and protection to the foot and ankle while allowing you to walk. It contains padded air cells that provide compression and help circulation. It is used for both foot and ankle injuries - both sprains and minor fractures. Ankle and foot sprains can take 4-6 weeks to heal. Persons with severe injuries or over age 60 may require more time to heal. During that time, you are prone to re-injury by suddenly twisting your foot or ankle again while the ligaments are still weak. When treating a sprain, the [employer] Walker boot should be worn whenever walking for at least four weeks, or as long as you continue to have ankle pain. Talk to your doctor for specific advice about the treatment of your condition. Air-Stirrup and SP-Walker are trademarks of [employer]. For more information about their products, see www.[place]. Ondansetron Oral disintegrating tablet What is this medicine? ONDANSETRON (on JACQUELINE se antonio) is used to treat nausea and vomiting caused by chemotherapy. It is also used to prevent or treat nausea and vomiting after surgery. How should I use this medicine? These tablets are made to dissolve in the mouth. Do not try to push the tablet through the foil backing. With dry hands, peel away the foil backing and gently remove the tablet. Place the tablet in the mouth and allow it to dissolve, then swallow. While you may take these tablets with water, it is not necessary to do so. Talk to your manager mutual fund regarding the use of this medicine in children. Special care may be needed. What side effects may I notice from receiving this medicine? Side effects that you should report to your doctor or health chronic care nurse as soon as possible: allergic reactions like skin rash, itching or hives, swelling of the face, lips, or tongue breathing problems dizziness fast or irregular heartbeat feeling faint or lightheaded, falls fever and chills swelling of the hands and feet tightness in the chest Side effects that usually do not require medical attention (report to your doctor or health chronic care nurse if they continue or are bothersome): constipation or diarrhea headache What may interact with this medicine? Do not take this medicine with any of the following medications: -apomorphine -cisapride -dofetilide -dronedarone -pimozide -thioridazine -ziprasidone This medicine may also interact with the following medications: -carbamazepine -phenytoin -rifampicin -tramadol -other medicines that prolong the QT interval (cause an abnormal heart rhythm) What if I miss a dose? If you miss a dose, take it as soon as you can. If it is almost time for your next dose, take only that dose. Do not take double or extra doses. Where should I keep my medicine? Keep out of the reach of children. Store between 2 and 30 degrees C (36 and 86 degrees F). Throw away any unused medicine after the expiration date. What should I tell my health care provider before I take this medicine? They need to know if you have any of these conditions: heart disease history of irregular heartbeat liver disease low levels of magnesium or potassium in the blood an unusual or allergic reaction to ondansetron, granisetron, other medicines, foods, dyes, or preservatives or trying to get breast-feeding What should I watch for while using this medicine? Check with your doctor or health chronic care nurse as soon as you can if you have any sign of an allergic reaction. Hydrocodone Bitartrate, Acetaminophen Oral tablet What is this medicine? ACETAMINOPHEN; HYDROCODONE (a set a ELICEO wanda fen; juan jose droe KOE done) is a pain reliever. It is used to treat mild to moderate pain. How should I use this medicine? Take this medicine by mouth. Swallow it with a full glass of water. Follow the directions on the prescription label. If the medicine upsets your stomach, take the medicine with food or milk. Do not take more than you are told to take. Talk to your manager mutual fund regarding the use of this medicine in children. This medicine is not approved for use in children. What side effects may I notice from receiving this medicine? Side effects that you should report to your doctor or health chronic care nurse as soon as possible: allergic reactions like skin rash, itching or hives, swelling of the face, lips, or tongue breathing problems confusion feeling faint or lightheaded, falls stomach pain yellowing of the eyes or skin Side effects that usually do not require medical attention (report to your doctor or health chronic care nurse if they continue or are bothersome): nausea, vomiting stomach upset What may interact with this medicine? alcohol antihistamines isoniazid medicines for depression, anxiety, or psychotic disturbances medicines for sleep muscle relaxants naltrexone narcotic medicines (opiates) for pain phenobarbital ritonavir tramadol What if I miss a dose? If you miss a dose, take it as soon as you can. If it is almost time for your next dose, take only that dose. Do not take double or extra doses. Where should I keep my medicine? Keep out of the reach of children. This medicine can be abused. Keep your medicine in a safe place to protect it from theft. Do not share this medicine with anyone. Selling or giving away this medicine is dangerous and against the law. Store at room temperature between 15 and 30 degrees C (59 and 86 degrees F). Protect from light. Keep container tightly closed. Throw away any unused medicine after the expiration date. Discard unused medicine and used packaging carefully. Pets and children can be harmed if they find used or lost packages. What should I tell my health care provider before I take this medicine? They need to know if you have any of these conditions: brain tumor Crohn's disease, inflammatory bowel disease, or ulcerative colitis drink more than 3 alcohol-containing drinks per day drug abuse or addiction head injury heart or circulation problems kidney disease or problems going to the bathroom liver disease lung disease, asthma, or breathing problems an unusual or allergic reaction to acetaminophen, hydrocodone, other opioid analgesics, other medicines, foods, dyes, or preservatives or trying to get breast-feeding What should I watch for while using this medicine? Tell your doctor or health chronic care nurse if your pain does not go away, if it gets worse, or if you have new or a different type of pain. You may develop tolerance to the medicine. Tolerance means that you will need a higher dose of the medicine for pain relief. Tolerance is normal and is expected if you take the medicine for a long time. Do not suddenly stop taking your medicine because you may develop a severe reaction. Your body becomes used to the medicine. This does NOT mean you are addicted. Addiction is a behavior related to getting and using a drug for a non-medical reason. If you have pain, you have a medical reason to take pain medicine. Your doctor will tell you how much medicine to take. If your doctor wants you to stop the medicine, the dose will be slowly lowered over time to avoid any side effects. You may get drowsy or dizzy when you first start taking the medicine or change doses. Do not drive, use machinery, or do anything that may be dangerous until you know how the medicine affects you. Stand or sit up slowly. There are different types of narcotic medicines (opiates) for pain. If you take more than one type at the same time, you may have more side effects. Give your health care provider a list of all medicines you use. Your doctor will tell you how much medicine to take. Do not take more medicine than directed. Call emergency for help if you have problems breathing. The medicine will cause constipation. Try to have a bowel movement at least every 2 to 3 days. If you do not have a bowel movement for 3 days, call your doctor or health chronic care nurse. Too much acetaminophen can be very dangerous. Do not take Tylenol (acetaminophen) or medicines that contain acetaminophen with this medicine. Many non-prescription medicines contain acetaminophen. Always read the labels carefully. Ibuprofen Oral tablet What is this medicine? IBUPROFEN (eye BYOO proe fen) is a non-steroidal anti-inflammatory drug (NSAID). It is used for dental pain, fever, headaches or migraines, osteoarthritis, rheumatoid arthritis, or painful monthly periods. It can also relieve minor aches and pains caused by a cold, flu, or sore throat. How should I use this medicine? Take this medicine by mouth with a glass of water. Follow the directions on the prescription label. Take this medicine with food if your stomach gets upset. Try to not lie down for at least 10 minutes after you take the medicine. Take your medicine at regular intervals. Do not take your medicine more often than directed. A special MedGuide will be given to you by the pharmacist with each prescription and refill. Be sure to read this information carefully each time. Talk to your manager mutual fund regarding the use of this medicine in children. Special care may be needed. What side effects may I notice from receiving this medicine? Side effects that you should report to your doctor or health chronic care nurse as soon as possible: allergic reactions like skin rash, itching or hives, swelling of the face, lips, or tongue black or bloody stools, blood in the urine or in vomit breathing problems changes in vision chest pain general ill feeling or flu-like symptoms nausea or vomiting redness, blistering, peeling or loosening of the skin, including inside the mouth slurred speech or weakness on one side of the body stomach pain unexplained weight gain or swelling unusually weak or tired yellowing of eyes or skin Side effects that usually do not require medical attention (report to your doctor or health chronic care nurse if they continue or are bothersome): constipation or diarrhea dizziness gas or heartburn stomach upset What may interact with this medicine? Do not take this medicine with any of the following medications: cidofovir ketorolac methotrexate pemetrexed This medicine may also interact with the following medications: alcohol aspirin diuretics lithium other drugs for inflammation like prednisone warfarin What if I miss a dose? If you miss a dose, take it as soon as you can. If it is almost time for your next dose, take only that dose. Do not take double or extra doses. Where should I keep my medicine? Keep out of the reach of children. Store at room temperature between 15 and 30 degrees C (59 and 86 degrees F). Keep container tightly closed. Throw away any unused medicine after the expiration date. What should I tell my health care provider before I take this medicine? They need to know if you have any of these conditions: asthma cigarette smoker drink more than 3 alcohol containing drinks a day heart disease or circulation problems such as heart failure or leg edema (fluid retention) high blood pressure kidney disease liver disease stomach bleeding or ulcers an unusual or allergic reaction to ibuprofen, aspirin, other NSAIDS, other medicines, foods, dyes, or preservatives or trying to get breast-feeding What should I watch for while using this medicine? Tell your doctor or healthcare professional if your symptoms do not start to get better or if they get worse. This medicine does not prevent heart attack or stroke. In fact, this medicine may increase the chance of a heart attack or stroke. The chance may increase with longer use of this medicine and in people who have heart disease. If you take aspirin to prevent heart attack or stroke, talk with your doctor or health chronic care nurse. Do not take other medicines that contain aspirin, ibuprofen, or naproxen with this medicine. Side effects such as stomach upset, nausea, or ulcers may be more likely to occur. Many medicines available without a prescription should not be taken with this medicine. This medicine can cause ulcers and bleeding in the stomach and intestines at any time during treatment. Ulcers and bleeding can happen without warning symptoms and can cause . To reduce your risk, do not smoke cigarettes or drink alcohol while you are taking this medicine. You may get drowsy or dizzy. Do not drive, use machinery, or do anything that needs mental alertness until you know how this medicine affects you. Do not stand or sit up quickly, especially if you are an older patient. This reduces the risk of dizzy or fainting spells. This medicine can cause you to bleed more easily. Try to avoid damage to your teeth and gums when you brush or floss your teeth. You have been given the following additional information: Fracture, Ankle (General) Ankle Fracture (Distal Fibula), Closed Walker Boot Ondansetron Oral disintegrating tablet Hydrocodone Bitartrate, Acetaminophen Oral tablet Ibuprofen Oral tablet (Electronically signed by Kelsie Vera A.R.N.PKiera 09/27/2016 22:52)
--- NOTE | 2016-09-27 22:53 | ED MED RECONCILIATION SUMMARY ---
Patient: DAKOTA VALDEZADA H Medication Reconciliation Report [facility] VisitID: [id number] [place] [address] 86y, F Registration Date/Time: 09/27/2016 Weight: 43.0 kg Height/Length: 60 in. BMI: 18.5 ALLERGIES: No Known Drug Allergy The patient's Home Medications are listed below: Unknown. The source(s) of the original Home Medication information: patient's family member eleuterio reports " I give her her medicines but I don't know what they are" asked to copy them and keep them in her purse for further reference The following Medications were given to the patient in the Emergency Department: Hydrocodone-APAP [PO] PO 1 tab, administered: 09/27/2016 8:23:00 PM The following Medications were prescribed to the patient: Zofran 4 mg: Take 1 orally every six hours as needed for nausea/vomiting. Dispense ten (10). No refills. Substitution is permissible. -- Kelsie Vera, A.R.N.P. [place] 5 mg / 325 mg tablets: take 1 to 2 orally every 6 hours as needed for pain. Dispense fifteen (15). No refills. Substitution is permissible. -- Kelsie Vera A.R.N.P. Motrin 800 mg tablets: take 1 tablet orally every 8 hours as needed for pain. Dispense thirty (30). No refills. Substitution is permissible. -- Kelsie Vera A.R.N.P.
--- NOTE | 2016-09-27 22:53 | ED MAR SUMMARY ---
..... Medication Administration Record [facility] [address] [place] [address] Patient: MICHELE VALDEZ Visit ID: [id number] 86y, F Weight: 43.0 kg Height/Length: 60 in BMI: 18.5 ALLERGIES: No Known Drug Allergy Given 20:23 09/27/2016 Betsy Barahona R.N. Medication Administered: HYDROCODONE-APAP [PO] (HYDROCODONE-ACETAMINOPHEN), Dose: 1 tab 5/325 mg Tablets PO. Medication Ordered: Hydrocodone-APAP PO 5/325 mg (NOW, HIGH ALERT MEDICATION).
--- NOTE | 2016-09-27 22:53 | ED MED RECONCILIATION SUMMARY ---
Patient: DAKOTA VALDEZADA H Medication Reconciliation Report [facility] VisitID: [id number] [place] [address] 86y, F Registration Date/Time: 09/27/2016 Weight: 43.0 kg Height/Length: 60 in. BMI: 18.5 ALLERGIES: No Known Drug Allergy The patient's Home Medications are listed below: Unknown. The source(s) of the original Home Medication information: patient's family member eleuterio reports " I give her her medicines but I don't know what they are" asked to copy them and keep them in her purse for further reference The following Medications were given to the patient in the Emergency Department: Hydrocodone-APAP [PO] PO 1 tab, administered: 09/27/2016 8:23:00 PM The following Medications were prescribed to the patient: Zofran 4 mg: Take 1 orally every six hours as needed for nausea/vomiting. Dispense ten (10). No refills. Substitution is permissible. -- Kelsie Vera, A.R.N.P. [place] 5 mg / 325 mg tablets: take 1 to 2 orally every 6 hours as needed for pain. Dispense fifteen (15). No refills. Substitution is permissible. -- Kelsie Vera A.R.N.P. Motrin 800 mg tablets: take 1 tablet orally every 8 hours as needed for pain. Dispense thirty (30). No refills. Substitution is permissible. -- Kelsie Vera A.R.N.P.
== END 2016-09-27 20:31 | disposition home or self-care (01) ==
LOC: ED SRH 17:34
DX: S82.832A Other fracture of upper and lower end of left fibula, initial encounter for closed fracture (principal); X58.XXXA Exposure to other specified factors, initial encounter; Y93.89 Activity, other specified; Y99.9 Unspecified external cause status; Y92.009 Unspecified place in unspecified non-institutional (private) residence as the place of occurrence of the external cause; K21.9 Gastro-esophageal reflux disease without esophagitis